=== PATIENT | female | born 1990 | race Caucasian/White ===

== ENCOUNTER 2017-12-03 14:17 | Emergency (ER) | payer MEDICAID ==
[2017-12-03 14:26] VITALS: BP 128/81
--- NOTE | 2017-12-03 14:38 | ED Physician Documentation ---
History of Present Illness - Stated complaint Stated Complaint: DIZZINESS - Chief complaint Chief Complaint: General - History obtained from History obtained from: Patient - History of Present Illness Timing: Today - Additonal information Additional information: 27-year-old has had an upper respiratory tract infection for the past 10 days and she has resolved her symptoms of this. This morning when she got out of bed she went to stand up and was extremely dizzy she states she feels somewhat improved now but that every time that she goes from sitting to standing she has some dizziness. She indicates that she has had some problem with water consumption previously and that she has to have a reminder for her to drink water she has a 72 ounce bottle and she rarely finishes more than 32 ounces.She denies a fever with this this illness or significant shortness of breath. Review of Systems Constitutional: denies: Fever Eyes: denies: Decreased vision Ears: denies: Ear pain Nose: reports: Rhinorrhea / runny nose, Congestion (resolved) Throat: denies: Sore throat Cardiac: denies: Chest pain / pressure, Palpitations Respiratory: reports: Cough (resolved). denies: Dyspnea GI: denies: Abdominal Pain, Nausea, Vomiting, Constipation, Diarrhea : denies: Dysuria, Frequency Skin: denies: Rash Musculoskeletal: denies: Neck pain, Back pain, Extremity pain Neurologic: denies: Generalized weakness, Focal weakness, Numbness PD PAST MEDICAL HISTORY - Past Medical History Past Medical History: No - Past Surgical History Past Surgical History: No - Present Medications Home Medications: Ambulatory Orders Medication Instructions Recorded Confirmed No Known Home Medications [No 12/03/17 12/03/17 Known Home Medications] - Allergies Allergies/Adverse Reactions: Allergies Allergy/AdvReac Type Severity Reaction Status Date / Time No Known Drug Allergies Allergy Verified 12/03/17 14:26 - Social History Does the pt smoke?: Yes Smoking Status: Current every day smoker Does the pt drink ETOH?: No Does the pt have substance abuse?: No - Immunizations Immunizations are current?: No Immunizations: TDAP >10years/unknown - POLST Patient has POLST: No PD ED PE NORMAL - Vitals Vital signs reviewed: Yes (normal ) - General General: Alert and oriented X 3, No acute distress, Well developed/nourished - HEENT HEENT: Atraumatic, PERRL, EOMI, Ears normal, Other (dry mucous membranes) - Neck Neck: Supple, no meningeal sign, No bony TTP - Cardiac Cardiac: RRR, No murmur - Respiratory Respiratory: No respiratory distress, Clear bilaterally - Abdomen Abdomen: Soft, Non tender - Back Back: No CVA TTP, No spinal TTP - Derm Derm: Normal color, Warm and dry, No rash - Extremities Extremities: No deformity, No edema - Neuro Neuro: No motor deficit, No sensory deficit Eye Opening: Spontaneous Motor: Obeys Commands Verbal: Oriented GCS Score: 15 - Psych Psych: Normal mood, Normal affect Results - Vitals Vitals: Vital Signs - 24 hr 12/03/17 14:23 Temperature 36.3 C L Heart Rate 50 L Respiratory 18 Rate Blood Pressure 128/81 H O2 Saturation 99 Oxygen O2 Source Room air Procedures - IVC sono (time) 1410 Bedside IVC sono: IVC measures (cm) (1.18), IVC collapsed c insp (cm) (complete) , Dehydration (est 1.5 liter deficit) PD MEDICAL DECISION MAKING - ED course Complexity details: reviewed old records, reviewed results, re-evaluated patient , considered differential, d/w patient ED course: 27-year-old female who is otherwise well has had a recent URI her symptoms with that are resolved. Examination today reveals no abnormalities with the exception of a collapsing IVC with a small diameter consistent with 1.5 liter fluid deficit. She does not have a history of diabetes and here today her sugars checked it is 111. She does not have polyuria polydipsia. She is dehydrated to a level that would cause symptoms consistent with the symptoms she is complaining. She is not having diarrhea or vomiting and oral hydration is indicated Departure - Departure Disposition: 01 Home, Self Care Clinical Impression: Dehydration Condition: Stable Instructions: ED Dehydration Follow-Up: Yina Ocampo ARNP [Primary Care Provider] -
== END 2017-12-03 14:48 | disposition home or self-care (01) ==
LOC: ED 14:17
DX: E86.0 Dehydration (principal); F17.200 Nicotine dependence, unspecified, uncomplicated
CPT/HCPCS: 99283

== ENCOUNTER 2018-07-20 12:58 | Emergency (ER) | payer MEDICAID ==
--- NOTE | 2018-07-20 13:51 | XRAY Report ---
Reason: productive cough Procedure Date: 07/20/2018 Accession Number: [id number] / [id number] Procedure: XR - Chest 2 View X-Ray CPT Code: 60702 FULL RESULT: EXAM: CHEST RADIOGRAPHY EXAM DATE: 07/20/2018 01:41 PM. CLINICAL HISTORY: Shortness of breath. Productive cough. COMPARISON: 09/01/2016. TECHNIQUE: 2 views. FINDINGS: Lungs/Pleura: Right lower lobe opacity most prominently medially. No pleural effusions or pneumothorax. Mediastinum: Heart and mediastinal contours are unremarkable. Other: None. IMPRESSION: 1. Developing medial right lower lobe pneumonia. RADIA
[2018-07-20] MEDS ORDERED: DOXYCYCLINE 100 MG TABLET PO STA (14:23)
[2018-07-20] MEDS ORDERED: ALBUTEROL NEB 2.5 MG/3 ML INH STA (14:23)
[2018-07-20] MEDS ORDERED: ACETAMINOPHEN 500 MG TABLET PO STA (14:23)
--- NOTE | 2018-07-20 16:26 | ED Physician Documentation ---
History of Present Illness - Stated complaint Stated Complaint: DIFF BREATHING - Chief complaint Chief Complaint: Resp - History obtained from History obtained from: Patient - Additonal information Additional information: 28-year-old female presents the emergency department with increasing fever, body aches, productive cough, wheezing and shortness of breath which has gradually worsened over the past several days. The patient denies any smoking or history of lung disease. Symptoms are described as moderate. No relieving factors. Review of Systems Constitutional: reports: Fever, Chills, Myalgias, Fatigue Eyes: denies: Discharge Ears: denies: Ear pain Nose: reports: Congestion Throat: denies: Sore throat Respiratory: reports: Dyspnea, Cough, Wheezing GI: denies: Abdominal Pain : denies: Dysuria Skin: denies: Rash Musculoskeletal: denies: Back pain Neurologic: denies: Generalized weakness Immunocompromised: denies: Chemotherapy PD PAST MEDICAL HISTORY - Past Medical History Past Medical History: No - Past Surgical History Past Surgical History: No - Present Medications Home Medications: Ambulatory Orders Medication Instructions Recorded Confirmed Albuterol Sulf [Ventolin Hfa 1 - 2 puffs INH Q4HR PRN #1 inhaler 07/20/18 Inhaler] Doxycycline Hyclate 100 mg PO BID #20 capsule 07/20/18 - Allergies Allergies/Adverse Reactions: Allergies Allergy/AdvReac Type Severity Reaction Status Date / Time azithromycin Allergy Cramps Verified 07/20/18 13:08 [From Zithromax Z-Nik] - Social History Does the pt smoke?: Yes Smoking Status: Current every day smoker Does the pt drink ETOH?: No Does the pt have substance abuse?: No - Immunizations Immunizations are current?: No Immunizations: TDAP >10years/unknown - POLST Patient has POLST: No PD ED PE NORMAL - General General: Alert and oriented X 3, No acute distress - HEENT HEENT: Atraumatic, PERRL, EOMI, Ears normal - Neck Neck: No JVD - Cardiac Cardiac: RRR, Strong equal pulses - Respiratory Respiratory: No respiratory distress. No: Clear bilaterally (The patient has bilateral expiratory wheezing with fair aeration) - Derm Derm: Normal color - Extremities Extremities: No deformity, No tenderness to palpate, Normal ROM s pain, No edema - Neuro Neuro: Alert and oriented X 3, Normal speech - Psych Psych: Normal affect Results - Vitals Vitals: Vital Signs - 24 hr 07/20/18 07/20/18 07/20/18 13:04 15:24 16:30 Temperature 36.8 C Heart Rate 93 75 75 Respiratory 16 16 14 Rate Blood Pressure 117/81 H 115/82 H 113/72 O2 Saturation 95 95 97 Oxygen O2 Source Room air - Rads (name of study) CXR Radiology: Final report received (1. Developing medial right lower lobe pneumonia. ) PD MEDICAL DECISION MAKING - ED course ED course: The patient had much improvement with a breathing treatment, the patient will be treated as an outpatient for pneumonia. There is no clinical evidence of sepsis, Hypoxia or respiratory distress that would necessitate admission to the hospital. The patient appears appropriate for outpatient management. I discussed the patient warning signs and recommended returning to the emergency department immediately for worsening or concerns. - Sepsis Event Vital Signs: Vital Signs - 24 hr 07/20/18 07/20/18 07/20/18 13:04 15:24 16:30 Temperature 36.8 C Heart Rate 93 75 75 Respiratory 16 16 14 Rate Blood Pressure 117/81 H 115/82 H 113/72 O2 Saturation 95 95 97 Oxygen O2 Source Room air Departure - Departure Disposition: 01 Home, Self Care Clinical Impression: Pneumonia Qualifiers: Pneumonia type: due to unspecified organism Laterality: unspecified laterality Lung location: unspecified part of lung Qualified Code(s): J18.9 - Pneumonia, unspecified organism Condition: Good Instructions: Pneumonia Dc Follow-Up: Yina Ocampo [employer]IOR [employer]EL[employer] [Primary Care Provider] - Prescriptions: Albuterol Sulf [Ventolin Hfa Inhaler] 1 - 2 puffs INH Q4HR PRN #1 inhaler PRN Reason: Shortness Of Air/Wheezing Doxycycline Hyclate 100 mg PO BID #20 capsule Comments: Please return to the emergency department immediately for worsening symptoms or any concerns Forms: Activity restrictions
[2018-07-20 16:32] VITALS: BP 113/72
== END 2018-07-20 16:32 | disposition home or self-care (01) ==
LOC: ED 12:58
DX: J18.9 Pneumonia, unspecified organism (principal)
CPT/HCPCS: 71046; 99283; 99284; A9270

== ENCOUNTER 2019-01-22 18:17 | Emergency (ER) | payer MEDICAID ==
[2019-01-22] MEDS ORDERED: ACETAMINOPHEN 325 MG TABLET PO STA (19:05)
[2019-01-22] MEDS ORDERED: SODIUM CHLORIDE 0.9% 1,000 ML IV ONE (20:47)
[2019-01-22] MEDS ORDERED: KETOROLAC 30 MG/ML VIAL IVP STA (20:47)
--- NOTE | 2019-01-22 21:35 | ED Physician Documentation ---
PD HPI URI - Stated complaint Stated Complaint: FEVER - Chief complaint Chief Complaint: Fever - History obtained from History obtained from: Patient - History of Present Illness Timing - onset: How many days ago (5) Timing duration: Days (5) Timing details: Gradual onset Pain level max: 3 Pain level now: 3 Severity Comments: mild Associated symptoms: Fever, Chills, Nasal congestion, Rhinorrhea, Dry cough Contributing factors: Sick contact Improves by: Rest, Medication Worsened by: No: Activity Review of Systems Ten Systems: 10 systems reviewed and negative Constitutional: reports: Reviewed and negative Eyes: reports: Reviewed and negative Ears: reports: Reviewed and negative Nose: reports: Reviewed and negative Throat: reports: Reviewed and negative Cardiac: reports: Reviewed and negative Respiratory: reports: Reviewed and negative GI: reports: Reviewed and negative : reports: Reviewed and negative Skin: reports: Reviewed and negative Musculoskeletal: reports: Reviewed and negative Neurologic: reports: Reviewed and negative Psychiatric: reports: Reviewed and negative Endocrine: reports: Reviewed and negative Immunocompromised: reports: Reviewed and negative PD PAST MEDICAL HISTORY - Past Medical History Other Past Medical History: Reviewed and not pertinent - Past Surgical History Past Surgical History: No Other past surgical history: Reviewed and not pertinent - Present Medications Home Medications: Ambulatory Orders Medication Instructions Recorded Confirmed No Known Home Medications 01/22/19 01/22/19 - Allergies Allergies/Adverse Reactions: Allergies Allergy/AdvReac Type Severity Reaction Status Date / Time azithromycin Allergy Cramps Verified 01/22/19 18:29 [From Zithromax Z-Nik] - Living Situation Living Situation: reports: With family Living Arrangement: reports: At home - Social History Does the pt smoke?: Yes Smoking Status: Current every day smoker Does the pt drink ETOH?: No Does the pt have substance abuse?: No - Family History Family history: reports: Other (Reviewed and not pertinent) - Immunizations Immunizations are current?: No Immunizations: TDAP >10years/unknown - POLST Patient has POLST: No PD ED PE NORMAL - Vitals Vital signs reviewed: Yes - General General: Alert and oriented X 3, No acute distress - HEENT HEENT: PERRL - Neck Neck: Supple, no meningeal sign - Cardiac Cardiac: RRR, No murmur - Respiratory Respiratory: Clear bilaterally - Abdomen Abdomen: Normal bowel sounds, Soft, Non tender, Non distended - Derm Derm: Warm and dry - Extremities Extremities: No deformity - Neuro Neuro: Alert and oriented X 3 - Psych Psych: Normal mood, Normal affect Results - Vitals Vitals: Vital Signs - 24 hr 01/22/19 01/22/19 18:27 21:27 Temperature 38.9 C H 36.9 C Heart Rate 130 H 94 Respiratory 22 16 Rate Blood Pressure 144/102 H 126/69 O2 Saturation 92 95 Oxygen O2 Source Room air PD MEDICAL DECISION MAKING - ED course Complexity details: reviewed results, re-evaluated patient, considered differential, d/w patient ED course: 28-year-old well-appearing female with flulike symptoms. Tachycardia resolved with fever control and IV fluid administration. Discharged with symptomatic treatment and primary care follow-up with return precautions. Departure - Departure Disposition: 01 Home, Self Care Clinical Impression: Acute upper respiratory infection, Dehydration Instructions: ED Dehydration, ED Fever Control, ED Flu Follow-Up: Lolis Brown ARNP [Primary Care Provider] - Comments: For symptom control take 1000 mg Tylenol and 800 mill jose ibuprofen 3 times daily. Take Zyrtec-D twice daily. Take Afrin every few hours for up to 3-5 days as needed for congestion. Stay hydrated with water, sports drinks and food as tolerated. Follow-up with PCP within 24 hours. Return with worsening symptoms.
[2019-01-22 21:59] VITALS: BP 115/69
== END 2019-01-22 22:04 | disposition home or self-care (01) ==
LOC: ED 18:17
DX: J06.9 Acute upper respiratory infection, unspecified (principal); E86.0 Dehydration; F17.200 Nicotine dependence, unspecified, uncomplicated
CPT/HCPCS: 96361; 96374; 99283; A9270

== ENCOUNTER 2021-09-25 03:11 | Outpatient (CLI) | payer MEDICAID | END 2021-09-25 23:59 | disposition EMS.NT | LOC: EMS 03:11 | DX: S51.859A Open bite of unspecified forearm, initial encounter (principal); W54.0XXA Bitten by dog, initial encounter; Y92.007 Garden or yard of unspecified non-institutional (private) residence as the place of occurrence of the external cause ==